=== PATIENT | male | born 1945 | race Caucasian/White ===

== ENCOUNTER → 2018-02-01 14:53 | Outpatient (CLI) | payer OTHER, SELFPAY ==
--- NOTE | 2018-02-04 16:26 | PM.PFT.1 ---
Pulmonary Function Test Referral & Results Date Patient Seen: 02/01/18 Requesting provider: Luke Varela Results: The spirometry demonstrates an FVC of 2.37 L which is 61% of predicted. The FEV1 was measured at 1.32 L which is 46% of predicted. The FEV1/FVC ratio was 56 which is 76% of predicted. Following the administration of bronchodilator there was no appreciable change. Lung volumes show an SVC of 2.70 L which is 65% of predicted. The diffusing capacity was measured at 16.25 which is 57% of predicted. No hemoglobin value was provided, so no correction for potential anemia could be made, if appropriate. The maximum voluntary ventilation was reduced. Interpretation: This study demonstrates moderately severe obstructive lung disease without evidence of benefit following bronchodilator In addition there is moderately severe restrictive lung disease The diffusing capacity is also significant reduce suggesting significant disease at the capillary alveolar level.
== END ==
PROVIDERS: PCP Physician Assistant; Visit Provider Emergency Medicine Emergency Medical Services
DX: J96.91 Respiratory failure, unspecified with hypoxia (principal)
CPT/HCPCS: 94010; 94060; 94726; 94729

== ENCOUNTER → 2018-06-04 14:03 | Outpatient (CLI) | payer OTHER, SELFPAY ==
[2018-06-07 22:17] LABS: Chromium, Plasma 0.8 mcg/L (< 1.3)
== END ==
PROVIDERS: PCP Physician Assistant; Visit Provider Physician Assistant
DX: R78.79 Finding of abnormal level of heavy metals in blood (principal)
CPT/HCPCS: 36415; 82495; 83018

== ENCOUNTER 2018-07-24 13:22 | Outpatient (RCR) | payer OTHER, SELFPAY | END 2018-08-05 10:11 | LOC: PHYS 13:22 | PROVIDERS: PCP Physician Assistant; Visit Provider Physician Assistant | DX: M54.5 Low back pain (principal); G89.4 Chronic pain syndrome | CPT/HCPCS: 97161 ==

== ENCOUNTER 2018-12-20 14:59 | Emergency (ER) | payer OTHER, SELFPAY ==
[2018-12-20 15:03] VITALS: BP 139/82; PULSE 105; RESP 22; TEMP 36.6; O2SAT 91
--- NOTE | 2018-12-20 15:11 | DI.RAD.S_ITS ---
PROCEDURE: XR CHEST 2V INDICATIONS: UPPER RESPIRATORY INFECTION TECHNIQUE: 2 views of the chest were acquired. COMPARISON: [facility], TIMMY, XR CHEST 2V, 02/04/2018, 12:00. [facility], CR, CHEST 1 VIEW, 11/02/2017, 17:52. FINDINGS: Surgical changes and devices: None. Lungs and pleura: Lungs are clear considering reduced inspiratory volume chronically on the left with elevation of left diaphragm. No pleural effusions or pneumothorax. Mediastinum: Mediastinal contours are normal. Heart size is normal. Bones and chest wall: No suspicious bony abnormalities. Soft tissues appear unremarkable. IMPRESSION: Chronically elevated left hemidiaphragm, results in left lower lung mild atelectasis. An area of pneumonia is not found but could be present in the area of atelectasis left lower lobe. Dictated by: Luke Vazquez M.D. on 12/20/2018 at 14:24 Approved by: Luke Vazquez M.D. on 12/20/2018 at 14:35
[2018-12-20 16:11] VITALS: BP 135/81; PULSE 102; RESP 20; O2SAT 87
[2018-12-20 16:12] VITALS: TEMP 36.7
--- NOTE | 2018-12-20 17:22 | ED.URI ---
HPI - URI/Sore Throat General Chief Complaint: Upper Respiratory Symptoms Stated Complaint: coughing up blood for a couple of days Time Seen by Provider: 12/20/18 17:19 Source: patient and family Mode of arrival: ambulatory Limitations: no limitations History of Present Illness HPI Narrative: The patient is a 73-year-old male who presents with hemoptysis and productive cough. He is on Coumadin for history of pulmonary embolism. [facility] and started on what we think is Levaquin. He was also given prescription to start prednisone if he was not getting any better he has not yet started prednisone. He coughed up a quarter-size a blood clot last evening. He said he has coughed up may be for total. He also feels like it is blood tinged sputum. He denies any worsening shortness of breath he is on oxygen continuously due to left hemidiaphragm problem. He has had some body aches and fevers. MD Complaint: cough Related Data Home Medications Medication Instructions Recorded Confirmed mirtazapine 45 mg PO BEDTIME #0 02/22/12 12/20/18 morphine 15 mg PO TID #0 01/13/17 12/20/18 oxycodone 1 tab PO TID PRN #30 tab 04/12/17 12/20/18 metformin [Glucophage] 1,000 mg PO BID #0 04/16/17 12/20/18 amlodipine [Norvasc] 5 mg PO BID #180 11/02/17 12/20/18 carvedilol [Coreg] 25 mg PO BIDCC #0 11/02/17 12/20/18 citalopram 40 mg PO DAILY #90 11/02/17 12/20/18 warfarin [Coumadin] 10 mg PO TUTHSA #180 11/02/17 12/20/18 acetic acid 5 drp OTIC (EAR) TID PRN 12/20/18 albuterol sulfate [ProAir HFA] 1 puff INHALATION DIRECTED PRN 12/20/18 12/20/18 aspirin 81 mg PO DAILY 12/20/18 12/20/18 atorvastatin 40 mg PO DAILY 12/20/18 12/20/18 bupropion HCl 150 mg PO QAM 12/20/18 12/20/18 celecoxib 200 mg PO DAILY 12/20/18 12/20/18 cholecalciferol (vitamin D3) 1,000 unit PO DAILY 12/20/18 12/20/18 [Vitamin D3] fluticasone propion-salmeterol 1 inh INHALATION BID 12/20/18 12/20/18 [Advair Diskus] gabapentin 600 mg PO BID 12/20/18 12/20/18 gabapentin 900 mg PO BEDTIME 12/20/18 12/20/18 hydroxyzine HCl 10 mg PO TID 12/20/18 12/20/18 ipratropium-albuterol [Combivent 1 puff INHALATION QID 12/20/18 12/20/18 Respimat] isosorbide mononitrate 60 mg PO DAILY 12/20/18 12/20/18 lisinopril 20 mg PO BID 12/20/18 12/20/18 lorazepam 1 mg PO BEDTIME 12/20/18 12/20/18 omeprazole 20 mg PO BID 12/20/18 12/20/18 warfarin 7.5 mg PO SUMOWETH 12/20/18 12/20/18 Previous Rx's Medication Instructions Recorded doxycycline hyclate 100 mg PO BID #14 cap 12/20/18 Allergies Allergy/AdvReac Type Severity Reaction Status Date / Time amoxicillin [AMOXICILLIN] Allergy Unknown RASH Verified 12/20/18 17:58 isoniazid [ISONIAZID] Allergy Unknown RASH Verified 12/20/18 17:58 Review of Systems Review of Systems ROS Unobtainable: All systems reviewed & are unremarkable except as noted in HPI and below Constitutional Denies chills, Denies fever(s), Denies lethargy and Denies weakness Eyes Denies change in vision, Denies eye discharge, Denies irritation and Denies loss of vision Cardiovascular Denies chest pain, Denies irregular heart rhythm, Denies lightheadedness, Denies palpitations, Reports dyspnea and Denies orthopnea Respiratory Reports as per HPI, Reports cough, Reports hemoptysis and Reports dyspnea Gastrointestinal Gastrointestinal: Denies abdominal pain, Denies change in bowel habits, Denies diarrhea, Denies nausea and Denies vomiting Genitourinary Denies hematuria, Denies flank pain, Denies urinary incontinence and Denies urinary urgency Musculoskeletal Denies back pain, Denies muscle weakness, Denies numbness and Denies tingling Integumentary/Breasts Denies pruritus, Denies erythema, Denies rash and Denies wounds Neurologic Denies confusion, Denies loss of vision, Denies numbness, Denies tingling and Denies weakness Psychiatric Denies anxiety, Denies confusion, Denies depression, Denies homicidal ideation and Denies suicidal ideation Endocrine Denies palpitations PFSH Medical History Hyperlipidemia (Acute) Hypertension (Acute) Pulmonary embolism (Acute) Social History Smoking Status: Former smoker alcohol intake: never substance use type: does not use Social History Smoking Status: Former smoker alcohol intake: never substance use type: does not use Comment: 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 HEENT: Head atraumatic,EOMI, pupils reactive, CARDIOVASCULAR: Regular rate and rhythm without murmurs, rubs or gallops. RESPIRATORY: Breath sounds equal bilaterally, no wheezes rales or rhonchi. Slightly decreased no respiratory distress speaks in full sentences ABDOMEN: Soft, nontender. Normoactive bowel sounds all 4 quadrants. No guarding or rebound. [RECTAL:] [Hemoccult-positive, no hemorrhoids, nontender] : No CVA tenderness EXTREMITIES: Normal range of motion, no clubbing or edema. Neurovascularly intact NEUROLOGICAL: Alert and oriented x4.Normal gait and speech. Cranial nerves II through XII grossly intact. [Good [id number], good [id number], strength equal bilaterally, no dysarthria or aphasia, sensation in tact to soft touch bilaterally, no visual changes, no facial droop] SKIN: Warm, dry, no laceration, no petechiae, no rashes or lesions. Course Orders Ordered: Discontinued Medications Doxycycline Hyclate (Vibramycin) 100 mg PO NOW ONE Stop: 12/20/18 19:28 Last Admin: 12/20/18 19:37 Dose: 100 mg Sodium Chloride (Normal Saline 0.9%) 1,000 mls @ 150 mls/hr IV CONT AUBREY Last Infusion: 12/20/18 19:48 Dose: 0 mls/hr Admin: 12/20/18 18:12 Dose: 150 mls/hr Vital Signs - 8 hr 12/20/18 15:03 12/20/18 16:11 12/20/18 16:12 Temperature 97.8 F 98.0 F Pulse Rate 105 H 102 H Respiratory Rate 22 20 Blood Pressure 139/82 Blood Pressure [Right Arm] 135/81 Pulse Oximetry 91 87 L MDM - URI/Sore Throat Lab Data Attestation: I reviewed the patient's lab results. Result diagrams: 12/20/18 17:50 12/20/18 17:50 Lab Results 12/20/18 12/20/18 12/20/18 Range/Units 17:50 17:50 17:50 WBC 9.7 (4.5-11.0) X10^3/uL RBC 4.40 L (4.5-5.9) X10^6/uL Hgb 12.4 L (13.5-17.5) g/dL Hct 38.0 L (41-53) % MCV 86.3 (80-100) fL MCH 28.2 (26-34) PG MCHC 32.7 (30-36) % RDW 14.0 (11.6-14.8) % Plt Count 258 (150-400) X10^3/uL Neut % (Auto) 67.2 (50-75) % Lymph % (Auto) 17.6 L (25-40) % [place] % (Auto) 10.3 (3-14) % Eos % (Auto) 4.3 H (2-4) % Baso % (Auto) 0.6 (0-2) % Neut # (Auto) 6500 (1781-5642) /uL Lymph # (Auto) 1700 (4004-8690) /uL [place] # (Auto) 1000 H (0-900) /uL Eos # (Auto) 400 (0-450) /uL Baso # (Auto) 100 (0-100) /uL PT 31.0 H (10.1-12.7) SECONDS INR 2.6 H (0.9-1.3) APTT 41 H (26.4-36.2) SECONDS Sodium (137-145) mmol/L Potassium (3.4-5.1) mmol/L Chloride (98-107) mmol/L Carbon Dioxide (22-32) mmol/L BUN (9-20) mg/dL Creatinine (0.66-1.25) mg/dL Estimated GFR (>60) mL/min BUN/Creatinine Ratio (6-22) Glucose (80-110) mg/dL Lactate (0.7-2.1) mmol/L Calcium (8.4-10.2) mg/dL Magnesium 1.8 (1.6-2.3) mg/dL Total Bilirubin (0.2-1.3) mg/dL AST (17-59) IU/L ALT (21-72) IU/L Alkaline Phosphatase (38-126) U/L Total Creatine Kinase 136 (55-170) U/L CK-MB (CK-2) 1.13 (<2.37) ng/mL CK-MB (CK-2) Rel Index 0.8 L (1.5-5.0) % Troponin I < 0.012 (0.01-0.034) ng/mL B-Natriuretic Peptide < 100 (<100) Total Protein (6.3-8.2) g/dL Albumin (3.5-5.0) g/dL Globulin (1.7-4.1) g/dL Albumin/Globulin Ratio (1.0-2.8) Procalcitonin (<0.5) ng/mL 12/20/18 12/20/18 12/20/18 Range/Units 17:50 17:50 17:50 WBC (4.5-11.0) X10^3/uL RBC (4.5-5.9) X10^6/uL Hgb (13.5-17.5) g/dL Hct (41-53) % MCV (80-100) fL MCH (26-34) PG MCHC (30-36) % RDW (11.6-14.8) % Plt Count (150-400) X10^3/uL Neut % (Auto) (50-75) % Lymph % (Auto) (25-40) % [place] % (Auto) (3-14) % Eos % (Auto) (2-4) % Baso % (Auto) (0-2) % Neut # (Auto) (1292-8348) /uL Lymph # (Auto) (0367-3586) /uL [place] # (Auto) (0-900) /uL Eos # (Auto) (0-450) /uL Baso # (Auto) (0-100) /uL PT (10.1-12.7) SECONDS INR (0.9-1.3) APTT (26.4-36.2) SECONDS Sodium 135 L (137-145) mmol/L Potassium 4.3 (3.4-5.1) mmol/L Chloride 100 (98-107) mmol/L Carbon Dioxide 25 (22-32) mmol/L BUN 16 (9-20) mg/dL Creatinine 0.90 (0.66-1.25) mg/dL Estimated GFR > 60.0 (>60) mL/min BUN/Creatinine Ratio 17.8 (6-22) Glucose 151 H (80-110) mg/dL Lactate 1.5 (0.7-2.1) mmol/L Calcium 9.0 (8.4-10.2) mg/dL Magnesium (1.6-2.3) mg/dL Total Bilirubin 0.5 (0.2-1.3) mg/dL AST 24 (17-59) IU/L ALT 27 (21-72) IU/L Alkaline Phosphatase 56 (38-126) U/L Total Creatine Kinase (55-170) U/L CK-MB (CK-2) (<2.37) ng/mL CK-MB (CK-2) Rel Index (1.5-5.0) % Troponin I (0.01-0.034) ng/mL B-Natriuretic Peptide (<100) Total Protein 7.3 (6.3-8.2) g/dL Albumin 4.1 (3.5-5.0) g/dL Globulin 3.2 (1.7-4.1) g/dL Albumin/Globulin Ratio 1.3 (1.0-2.8) Procalcitonin < 0.05 (<0.5) ng/mL Imaging Data Chest x-ray: Radiologist's impression: PROCEDURE: XR CHEST 2V INDICATIONS: UPPER RESPIRATORY INFECTION TECHNIQUE: 2 views of the chest were acquired. [facility], CR, CHEST 1 VIEW, 11/02/2017, 17:52. FINDINGS: Surgical changes and devices: None. Lungs and pleura: Lungs are clear considering reduced inspiratory volume chronically on the left with elevation of left diaphragm. No pleural effusions or pneumothorax. Mediastinum: Mediastinal contours are normal. Heart size is normal. Bones and chest wall: No suspicious bony abnormalities. Soft tissues appear unremarkable. IMPRESSION: Chronically elevated left hemidiaphragm, results in left lower lung mild atelectasis. An area of pneumonia is not found but could be present in the area of atelectasis left lower lobe. Dictated by: Luke Vazquez M.D. on 12/20/2018 at 14:24 ECG Data Attestation: I personally reviewed and interpreted this ECG as follows: Prior ECG tracings: available for review Interpretation: Normal sinus rhythm rate [address] changes no T-wave inversions similar to previous EKG MDM Narrative Medical decision making narrative: Is on the patient is actually taking azithromycin. Hemoptysis is small amounts of likely due from probable pneumonia, bronchitis and Coumadin. He states he is overall not feeling better would like to change him to doxycycline. It is possible that patient has influenza although he is afebrile and overall looks okay. He is certainly out of the window to benefit from Tamiflu, at this time no indication to even test. He appears nontoxic. At this time patient may be discharged home. I discussed all findings with the patient and spouse, Education has been performed regarding treatment plan, diagnosis, warning signs and symptoms and all concerns have been addressed. Verbally agree with and understood all of the above. Discharge Plan Departure Patient Disposition: Home Clinical Impression: Pneumonia Qualifiers: Pneumonia type: due to unspecified organism Laterality: unspecified laterality Lung location: unspecified part of lung Qualified Code(s): J18.9 - Pneumonia, unspecified organism Discharge Date/Time: 12/20/18 19:48 Interventions: ED Discharge Assessment Last Done: 12/20/18 19:48 Instructions: Atypical Pneumonia Activity Restrictions/Additional Instructions: *You have been diagnosed with atypical pneumonia *What to do: Any antibiotic can change the INR/Coumadin level. You must get this rechecked in the next 3 days. Today her level is 2.7. *Continue to take medications as directed Stop taking azithromycin Start taking doxycycline 100 mg twice a day for 7 days Fill and take prednisone as previously prescribed *Follow up with your primary care provider in 2-3 days *Return to ER if you should have increasing shortness of breath, coughing up cup fulls of blood, increasing chest or any new, worsening or concerning symptoms Prescriptions: New doxycycline hyclate 100 mg capsule 100 mg PO BID Qty: 14 RF: 0 No Action mirtazapine 15 MG tablet 45 mg PO BEDTIME Qty: 0 RF: 0 morphine 15 MG tablet 15 mg PO TID Qty: 0 RF: 0 oxycodone 5 MG tablet 1 tab PO TID PRN (Reason: pain) Qty: 30 RF: 0 metformin [Glucophage] 1,000 MG tablet 1,000 mg PO BID Qty: 0 RF: 0 amlodipine [Norvasc] 5 MG tablet 5 mg PO BID Qty: 180 RF: 0 citalopram 40 MG tablet 40 mg PO DAILY Qty: 90 RF: 0 warfarin [Coumadin] 5 MG tablet 10 mg PO TUTHSA Qty: 180 RF: 0 carvedilol [Coreg] 25 MG tablet 25 mg PO BIDCC Qty: 0 RF: 0 fluticasone propion-salmeterol [Advair Diskus] 250-50 mcg/dose Blister With Device 1 inh INHALATION BID RF: 0 acetic acid 2 % Solution 5 drp otic (ear) TID PRN (Reason: ear care) RF: 0 warfarin 5 mg Tablet 7.5 mg PO SUMOWETH RF: 0 aspirin 81 mg Tablet,Chewable 81 mg PO DAILY RF: 0 celecoxib 200 mg Capsule 200 mg PO DAILY RF: 0 atorvastatin 40 mg Tablet 40 mg PO DAILY RF: 0 gabapentin 300 mg Capsule 600 mg PO BID RF: 0 gabapentin 300 mg Capsule 900 mg PO BEDTIME RF: 0 lorazepam 1 mg Tablet 1 mg PO BEDTIME RF: 0 albuterol sulfate [ProAir HFA] 90 mcg/actuation Hfa Aerosol Inhaler 1 puff INHALATION DIRECTED PRN (Reason: Shortness Of Breath) RF: 0 hydroxyzine HCl 10 mg Tablet 10 mg PO TID RF: 0 cholecalciferol (vitamin D3) [Vitamin D3] 1,000 unit Capsule 1,000 unit PO DAILY RF: 0 bupropion HCl 150 mg Tablet Extended Release 24 Hr 150 mg PO QAM RF: 0 omeprazole 20 mg Tablet,Delayed Release (Dr/Ec) 20 mg PO BID RF: 0 Combivent Respimat 20-100 mcg/actuation Mist 1 puff Inhalation QID RF: 0 lisinopril 20 MG tablet 20 mg PO BID RF: 0 isosorbide mononitrate 60 MG tablet extended release 24 hr 60 mg PO DAILY RF: 0 Referrals: Michaela See PA-C [Primary Care Provider] -
[2018-12-20 18:03] LABS: Add Manual Diff / Slide Review NO; Basophils Absolute Auto 100 /uL (0-100); Basophils Percent Auto 0.6 % (0-2); Eosinophils Absolute Auto 400 /uL (0-450); Eosinophils Percent Auto 4.3 % (2-4); Hemoglobin 12.4 g/dL (13.5-17.5); Lymphocytes Absolute Auto 1700 /uL (1100-4500); Lymphocytes Percent Auto 17.6 % (25-40); Mean Corpuscular HGB Conc 32.7 % (30-36); Mean Corpuscular Hemoglobin 28.2 PG (26-34); Mean Corpuscular Volume 86.3 fL (80-100); Monocytes Absolute Auto 1000 /uL (0-900); Monocytes Percent Auto 10.3 % (3-14); Neutrophils Absolute Auto 6500 /uL (1500-7000); Neutrophils Percent Auto 67.2 % (50-75); Platelet Count 258 X10^3/uL (150-400); White Blood Cell Count 9.7 X10^3/uL (4.5-11.0)
[2018-12-20] MEDS: SODIUM CHLORIDE 0.9% 1,000 ML 150 ML IV (18:12)
[2018-12-20 18:15] LABS: INR 2.6 (0.9-1.3)
[2018-12-20 18:17] LABS: Creatine Kinase 136 U/L (55-170); Magnesium 1.8 mg/dL (1.6-2.3); PTT Partial Thromboplastin Tim 41 SECONDS (26.4-36.2)
[2018-12-20 18:19] LABS: Alanine Aminotransferase 27 IU/L (21-72); Albumin 4.1 g/dL (3.5-5.0); Albumin Globulin Ratio 1.3 (1.0-2.8); Alkaline Phosphatase 56 U/L (38-126); Aspartate Aminotransferase 24 IU/L (17-59); BUN Creatinine Ratio 17.8 (6-22); Bilirubin Total 0.5 mg/dL (0.2-1.3); Blood Urea Nitrogen 16 mg/dL (9-20); Carbon Dioxide 25 mmol/L (22-32); Chloride 100 mmol/L (98-107); Estimated Glomerular Filt Rate > 60.0 mL/min (>60); Globulin 3.2 g/dL (1.7-4.1); Glucose 151 mg/dL (80-110); HEMOLYSIS < 15 (0-50); Lactate (Lactic Acid) 1.5 mmol/L (0.7-2.1); Potassium 4.3 mmol/L (3.4-5.1); Sodium 135 mmol/L (137-145); Total Protein 7.3 g/dL (6.3-8.2)
[2018-12-20 18:26] LABS: B Type Natriuretic Peptide < 100 (<100)
[2018-12-20 18:30] LABS: Troponin I < 0.012 ng/mL (0.01-0.034)
[2018-12-20 18:32] LABS: CKMB % Relative Index 0.8 % (1.5-5.0); Creatine Kinase MB 1.13 ng/mL (<2.37)
[2018-12-20 18:34] LABS: Procalcitonin < 0.05 ng/mL (<0.5)
[2018-12-20 19:37] VITALS: BP 145/74; PULSE 88; RESP 18; O2SAT 95
[2018-12-20] MEDS: DOXYCYCLINE HYCLATE 100 MG TABLET PO (19:37)
== END 2018-12-20 19:48 | disposition home or self-care (01) ==
PROVIDERS: Emergency Provider Emergency Medicine; PCP Physician Assistant
DX: J18.9 Pneumonia, unspecified organism (principal)
CPT/HCPCS: 71046; 80053; 82550; 82553; 83605; 83735; 83880; 84145; 84484; 85025; 85610; 85730; 87040; 93005; 96360; 96361; 99283; 99285

== ENCOUNTER → 2019-01-15 15:12 | Outpatient (CLI) | payer OTHER, SELFPAY ==
[2019-01-15 16:05] LABS: Add Manual Diff / Slide Review NO; Basophils Absolute Auto 100 /uL (0-100); Basophils Percent Auto 0.6 % (0-2); Eosinophils Absolute Auto 300 /uL (0-450); Eosinophils Percent Auto 3.5 % (2-4); Hematocrit 40.4 % (41-53); Hemoglobin 13.2 g/dL (13.5-17.5); Lymphocytes Absolute Auto 1500 /uL (1100-4500); Lymphocytes Percent Auto 17.6 % (25-40); Mean Corpuscular HGB Conc 32.8 % (30-36); Mean Corpuscular Hemoglobin 28.5 PG (26-34); Mean Corpuscular Volume 87.1 fL (80-100); Monocytes Absolute Auto 700 /uL (0-900); Monocytes Percent Auto 8.1 % (3-14); Neutrophils Absolute Auto 6200 /uL (1500-7000); Neutrophils Percent Auto 70.2 % (50-75); Platelet Count 244 X10^3/uL (150-400); Red Blood Cell Count 4.64 X10^6/uL (4.5-5.9); Red Cell Distribution Width 14.7 % (11.6-14.8); White Blood Cell Count 8.8 X10^3/uL (4.5-11.0)
[2019-01-15 16:27] LABS: Hemoglobin A1C% w Est Avg Glu 7.3 % (4.0-6.0)
[2019-01-15 17:04] LABS: Alanine Aminotransferase 23 IU/L (21-72); Albumin 4.1 g/dL (3.5-5.0); Albumin Globulin Ratio 1.4 (1.0-2.8); Alkaline Phosphatase 53 U/L (38-126); Aspartate Aminotransferase 21 IU/L (17-59); BUN Creatinine Ratio 17.8 (6-22); Bilirubin Total 0.5 mg/dL (0.2-1.3); Blood Urea Nitrogen 16 mg/dL (9-20); Calcium 9.2 mg/dL (8.4-10.2); Carbon Dioxide 23 mmol/L (22-32); Chloride 103 mmol/L (98-107); Cholesterol 157 mg/dL (140-199); Estimated Glomerular Filt Rate > 60.0 mL/min (>60); Globulin 2.9 g/dL (1.7-4.1); Glucose 214 mg/dL (80-110); HDL Cholesterol 46 mg/dL (40-60); HEMOLYSIS < 15 (0-50); LDL Cholesterol Calculated 63 mg/dL (<100); Potassium 4.6 mmol/L (3.4-5.1); Sodium 137 mmol/L (137-145); Triglycerides 238 mg/dL (35-150)
== END ==
PROVIDERS: PCP Physician Assistant; Visit Provider Physician Assistant
DX: E11.9 Type 2 diabetes mellitus without complications (principal); E78.5 Hyperlipidemia, unspecified; I10 Essential (primary) hypertension
CPT/HCPCS: 36415; 80053; 80061; 83036; 85025

== ENCOUNTER → 2019-05-19 13:22 | Outpatient (CLI) | payer OTHER, SELFPAY ==
--- NOTE | 2019-05-19 | DI.MRI.S_ITS ---
PROCEDURE: MR LUMBAR SPINE WO CON INDICATIONS: Low back pain TECHNIQUE: Noncontrast sagittal T1 spin echo and T2 fast echo, sagittal STIR, axial T1 and T2 fast spin echo through the lumbar spine. In cases with scoliosis, additional coronal T2 fast spin echo may be performed. COMPARISON: [facility], MR, L-SPINE WITHOUT CONTRAST, 06/19/2014, 14:28. FINDINGS: Image quality: Motion artifact. Alignment and Curvature: There is normal bony alignment. Bone Marrow: No acute fracture. Multilevel degenerative endplate sclerosis and spurring. Diffuse facet arthropathy. Spinal Cord: Conus medullaris terminates at the L1 level. Visualized cord demonstrates normal signal and size. Paraspinous Soft Tissues: Atrophy of the right psoas muscle. L1-L2: Normal appearance. L2-L3: No central canal stenosis. Partial effacement of both lateral recesses with bilaterally symmetric appearance. Moderate right foraminal stenosis with nerve root compression. No left foraminal narrowing. No interval change L3-L4: Normal appearance. No central canal narrowing. Partial effacement of both lateral recesses with bilaterally symmetric appearance. Mild bilateral foraminal stenosis. No change L4-L5: Mild dorsal epidural lipomatosis. Mild central canal narrowing. Partial effacement of both lateral recesses with bilaterally symmetric appearance. Severe left foraminal stenosis with nerve root compression. Mild right foraminal narrowing no interval change L5-S1: No central canal stenosis or lateral recess appear grossly patent. Mild to moderate right foraminal narrowing with minimal nerve root compression. No left foraminal stenosis. No interval change IMPRESSION: Overall, unchanged lumbar spondylosis with severe left foraminal narrowing at L4-L5. Moderate right L2-L3 foraminal narrowing also unchanged. Mild to moderate right L5-S1 foraminal narrowing, unchanged. Dictated by: Adalberto Hemphill M.D. on 05/19/2019 at 14:26 Approved by: Adalberto Hemphill M.D. on 05/19/2019 at 14:34
== END ==
PROVIDERS: PCP Physician Assistant; Visit Provider Physical Medicine & Rehabilitation Pain Medicine
DX: M54.5 Low back pain (principal); M47.816 Spondylosis without myelopathy or radiculopathy, lumbar region; M48.061 Spinal stenosis, lumbar region without neurogenic claudication; M48.07 Spinal stenosis, lumbosacral region
CPT/HCPCS: 72148

== ENCOUNTER → 2019-11-28 18:59 | Outpatient (ROUT) | payer OTHER, SELFPAY ==
[2019-11-28 19:16] LABS: Hematocrit 37.8 % (41-53); Hemoglobin 12.6 g/dL (13.5-17.5); Mean Corpuscular HGB Conc 33.4 % (30-36); Mean Corpuscular Hemoglobin 27.6 PG (26-34); Mean Corpuscular Volume 82.8 fL (80-100); Platelet Count 239 X10^3/uL (150-400); Red Blood Cell Count 4.57 X10^6/uL (4.5-5.9); Red Cell Distribution Width 14.8 % (11.6-14.8); White Blood Cell Count 8.9 X10^3/uL (4.5-11.0)
[2019-11-28 19:22] LABS: Alanine Aminotransferase 28 IU/L (<50); Albumin 4.4 g/dL (3.5-5.0); Albumin Globulin Ratio 1.3 (1.0-2.8); Alkaline Phosphatase 59 U/L (38-126); Aspartate Aminotransferase 34 IU/L (17-59); BUN Creatinine Ratio 22.2 (6-22); Bilirubin Total 0.5 mg/dL (0.2-1.3); Blood Urea Nitrogen 20 mg/dL (9-20); Calcium 9.7 mg/dL (8.4-10.2); Carbon Dioxide 26 mmol/L (22-32); Chloride 103 mmol/L (98-107); Cholesterol 124 mg/dL (140-199); Estimated Glomerular Filt Rate > 60.0 mL/min (>60); Globulin 3.3 g/dL (1.7-4.1); Glucose 173 mg/dL (80-110); HDL Cholesterol 38 mg/dL (40-60); HEMOLYSIS 19 (0-50); Hemoglobin A1C% w Est Avg Glu 6.7 % (4.0-6.0); LDL Cholesterol Calculated 20 mg/dL (<100); Potassium 4.8 mmol/L (3.4-5.1); Sodium 140 mmol/L (137-145); Total Protein 7.7 g/dL (6.3-8.2); Triglycerides 332 mg/dL (35-150)
[2019-11-28 19:26] LABS: Add Manual Diff / Slide Review YES
[2019-11-28 21:23] LABS: Neutrophils Absolute Manual 6230 /uL (3000-5900); Total Cells Counted 100
[2019-11-28 21:24] LABS: RBC Morphology Normal Morphology
== END ==
PROVIDERS: PCP Physician Assistant; Visit Provider Physician Assistant
DX: E11.9 Type 2 diabetes mellitus without complications (principal); E78.2 Mixed hyperlipidemia
CPT/HCPCS: 80053; 80061; 83036; 85025

== ENCOUNTER 2020-07-12 17:05 | Emergency (ER) | payer OTHER, SELFPAY ==
[2020-07-12] VITALS (14 sets, daily range): BP systolic 151–215; BP diastolic 74–94; PULSE 68–77; RESP 16–24; TEMP 36.3; O2SAT 95–99; BMI 38.7
--- NOTE | 2020-07-12 17:19 | DI.RAD.S_ITS ---
PROCEDURE: XR CHEST 1V INDICATIONS: chest pain TECHNIQUE: One view of the chest was acquired. COMPARISON: [facility], CR, XR CHEST 2V, 02/04/2018, 12:00. [facility], CR, CHEST 1 VIEW, 11/02/2017, 17:52. [facility], CR, XR CHEST 2V, 12/20/2018, 15:13. FINDINGS: Surgical changes and devices: None. Lungs and pleura: Lungs are clear. No pleural effusions or pneumothorax. There is elevation of the left hemidiaphragm. Mediastinum: The cardiac contours are likely mildly enlarged. The aorta demonstrates calcification and tortuosity. Bones and chest wall: No suspicious bony lesions. Age-appropriate bony degenerative changes are seen. Overlying soft tissues appear unremarkable. IMPRESSION: Chronic elevation of the left hemidiaphragm. No definite, acute abnormality is seen. Likely mild cardiomegaly. Dictated by: Domingo Negron M.D. on 07/12/2020 at 16:55 Approved by: Domingo Negron M.D. on 07/12/2020 at 16:56
--- NOTE | 2020-07-12 17:27 | ED_ITS ---
HPI - Chest Pain <Sade WanJACKLYN - Last Filed: 07/12/20 21:33> General Chief Complaint: Chest Pain Stated Complaint: Chest Pain and Pressure, High BP Time Seen by Provider: 07/12/20 17:14 Source: patient Mode of arrival: Wheelchair History of Present Illness HPI narrative: 75yo male hypertension, lung lobectomy, currently is constantly on 4 L nasal cannula-unsure but thinks he may have COPD, presents to the emergency department for intermittent left-sided chest pain. He states the pain is intermittent ?squirt of sharp pain that lasts a few seconds, he reports it has been on off for the past 3 days. Patient states the last felt the pain today around 1:00 p.m. He states they occur without cause during activity and during rest. He denies any aggravating or alleviating symptoms. Patient reports diarrhea x1 week as well. Patient has noticed increased BP readings at home. He denies any other symptoms such as shortness of breath, cough, fevers, abdominal pain, nausea, vomiting, increased swelling in his legs, or any other concerns. He states he takes multiple ?hearrts pills ?. Related Data Home Medications Medication Instructions Recorded Confirmed mirtazapine 45 mg PO BEDTIME #0 02/22/12 04/02/19 morphine 15 mg PO TID #0 01/13/17 04/02/19 oxycodone 1 tab PO TID PRN #30 tab 04/12/17 04/02/19 metformin [Glucophage] 1,000 mg PO BID #0 04/16/17 04/02/19 amlodipine [Norvasc] 5 mg PO BID #180 11/02/17 04/02/19 carvedilol [Coreg] 25 mg PO BIDCC #0 11/02/17 04/02/19 citalopram 40 mg PO DAILY #90 11/02/17 04/02/19 warfarin [Coumadin] 10 mg PO TUTHSA #180 11/02/17 04/02/19 acetic acid 5 drp OTIC (EAR) TID PRN 12/20/18 04/02/19 albuterol sulfate [ProAir HFA] 1 puff INHALATION DIRECTED PRN 12/20/18 04/02/19 aspirin 81 mg PO DAILY 12/20/18 04/02/19 atorvastatin 40 mg PO DAILY 12/20/18 04/02/19 bupropion HCl 150 mg PO QAM 12/20/18 04/02/19 celecoxib 200 mg PO DAILY 12/20/18 04/02/19 cholecalciferol (vitamin D3) 1,000 unit PO DAILY 12/20/18 04/02/19 [Vitamin D3] fluticasone propion-salmeterol 1 inh INHALATION BID 12/20/18 04/02/19 [Advair Diskus] gabapentin 600 mg PO BID 12/20/18 04/02/19 gabapentin 900 mg PO BEDTIME 12/20/18 04/02/19 hydroxyzine HCl 10 mg PO TID 12/20/18 04/02/19 ipratropium-albuterol [Combivent 1 puff INHALATION QID 12/20/18 04/02/19 Respimat] isosorbide mononitrate 60 mg PO DAILY 12/20/18 04/02/19 lisinopril 20 mg PO BID 12/20/18 04/02/19 lorazepam 1 mg PO BEDTIME 12/20/18 04/02/19 omeprazole 20 mg PO BID 12/20/18 04/02/19 warfarin 7.5 mg PO SUMOWETH 12/20/18 04/02/19 Resmed Aircurve 10 BIPAP #1 ea 04/02/19 04/02/19 Previous Rx's Medication Instructions Recorded doxycycline hyclate 100 mg PO BID #14 cap 12/20/18 Allergies Allergy/AdvReac Type Severity Reaction Status Date / Time amoxicillin [AMOXICILLIN] Allergy Unknown RASH Verified 07/12/20 17:23 isoniazid [ISONIAZID] Allergy Unknown RASH Verified 07/12/20 17:23 Review of Systems <JACKLYN Akers - Last Filed: 07/12/20 21:33> Review of Systems Narrative: REVIEW OF SYSTEMS: GENERAL: Denies fever or chills. HENT: No head trauma, hearing loss or sore throat. EYES: No loss of vision, double vision, eye pain, or irritation. CARDIOVASCULAR: Reports chest pain, see HPI. RESPIRATORY: No shortness of breath or cough. GASTROINTESTINAL: No nausea, vomiting, diarrhea, or constipation. GENITOURINARY: No flank pain or dysuria. MUSCULOSKELETAL: No pain, weakness, or deformities. INTEGUMENTARY: No rash, lesions, or pruritus. NEURO: No numbness, tingling, memory loss, or confusion. PSYCH: No behavior or mood changes. Patient History <JACKLYN Akers - Last Filed: 07/12/20 21:33> Medical History Hyperlipidemia (Acute) Hypertension (Acute) Pulmonary embolism (Acute) Social History Smoking Status: Former smoker alcohol intake: never substance use type: does not use Smoking Status: Former smoker alcohol intake frequency: 0-2 drinks per day Substance Use Type: does not use Exam <JACKLYN Akers - Last Filed: 07/12/20 21:33> Initial Vital Signs Initial Vital Signs: Vital Signs Temperature 97.3 F L 07/12/20 17:20 Pulse Rate 77 07/12/20 17:20 Respiratory Rate 16 07/12/20 17:20 Blood Pressure 215/94 H 07/12/20 17:20 Pulse Oximetry 96 07/12/20 17:20 PHYSICAL EXAMINATION: GENERAL: Alert and awake, obese appearing gentleman. HENT: Normocephalic, atraumatic. Ear canals patent. Oral mucosa is pink and moist. EYES: Conjunctiva pink, sclera white, no periorbital swelling. CHEST: Normal to inspection and without deformities. CARDIOVASCULAR: S1 and S2 sounds normal. Regular rate and rhythm, no murmurs, clicks, or bruits. RESPIRATORY: Normal respiratory rate, trachea midline, airway patent. No stridor, nasal flaring or accessory muscle use. Lungs clear, decreased lung sounds on left side, most likely consistent with lobectomy. Chronically on 4 L nasal cannula. GASTROINTESTINAL: Bowel sounds normoactive. Abdomen is soft and non-tender. No organomegaly. MUSCULOSKELETAL: Normal gait and coordination. Equal tone and mass bilaterally. EXTREMITIES: CMS intact. Moves all extremities. SKIN: Warm, dry, soft, appropriate color for ethnicity. No lesions, rashes, or wounds. NEURO: Alert and Oriented X 3. Good coordination. No ataxia, or sensory deficits, or cognitive issues. PSYCH: Appropriate affect and mood. <Pete Jarquin DO - Last Filed: 07/12/20 22:35> Initial Vital Signs Initial Vital Signs: Vital Signs Temperature 97.3 F L 07/12/20 17:20 Pulse Rate 77 07/12/20 17:20 Respiratory Rate 16 07/12/20 17:20 Blood Pressure 215/94 H 07/12/20 17:20 Pulse Oximetry 96 07/12/20 17:20 Scores <JACKLYN Akers - Last Filed: 07/12/20 21:33> HEART Score Heart Score history: Slightly Suspicious Heart Score EKG: Normal Heart Score Age: > or = 65 years old Heart Score risk factors: > 3 risk factors or hx of atherosclerotic disease Heart Score troponin: < or = to normal limit Heart Score Total: 4 Course <JACKLYN Akers - Last Filed: 07/12/20 21:33> Course Course Narrative: 1834: Discussed patient's heart score and test, test results, and symptoms with Dr. Sorto, she recommended repeat troponin and EKG as well as CT, discharge if negative. Patient continues to deny chest pain throughout the emergency department stay. Orders Ordered: ED Orders 07/12/20 17:16 Complete Blood Count AUTO DIFF Stat Comprehensive Metabolic Panel Stat Lipase Stat NT-proBNP (BNP-Adult 18+) Stat Partial Thromboplastin Time Stat Prothrombin Time INR Stat Troponin & CK Cardiac Panel Stat 07/12/20 17:19 XR chest 1V Stat 07/12/20 18:49 CT angio chest PE protocol Stat 07/12/20 19:15 Troponin I Stat EKG-12 Lead Stat Consultations Consultation #1: Discussed test, test results, and plan of care with Dr. Jarquin. Vital Signs Vital signs: Vital Signs - 8 hr 07/12/20 17:20 07/12/20 17:21 07/12/20 17:30 Temperature 97.3 F L Pulse Rate 77 72 72 Respiratory Rate 16 16 16 Blood Pressure 215/94 H Pulse Oximetry 96 99 99 07/12/20 17:31 07/12/20 18:00 07/12/20 18:24 Temperature Pulse Rate 72 71 72 Respiratory Rate 19 17 18 Blood Pressure 191/86 H 178/83 H 170/81 H Pulse Oximetry 97 98 97 07/12/20 18:30 07/12/20 19:05 07/12/20 19:07 Temperature Pulse Rate 75 75 72 Respiratory Rate 17 18 Blood Pressure 175/82 H 210/86 H Pulse Oximetry 99 97 07/12/20 19:27 07/12/20 19:30 07/12/20 20:00 Temperature Pulse Rate 74 72 70 Respiratory Rate 21 24 18 Blood Pressure 185/84 H 177/85 H 151/74 H Pulse Oximetry 95 95 98 07/12/20 20:30 07/12/20 20:31 Temperature Pulse Rate 69 68 Respiratory Rate 16 16 Blood Pressure 178/80 H Pulse Oximetry 96 97 <Pete Jarquni DO - Last Filed: 07/12/20 22:35> Orders Ordered: ED Orders 07/12/20 17:16 Complete Blood Count AUTO DIFF Stat Comprehensive Metabolic Panel Stat Lipase Stat NT-proBNP (BNP-Adult 18+) Stat Partial Thromboplastin Time Stat Prothrombin Time INR Stat Troponin & CK Cardiac Panel Stat 07/12/20 17:19 XR chest 1V Stat 07/12/20 18:49 CT angio chest PE protocol Stat 07/12/20 19:15 Troponin I Stat EKG-12 Lead Stat Vital Signs Vital signs: Vital Signs - 8 hr 07/12/20 17:20 07/12/20 17:21 07/12/20 17:30 Temperature 97.3 F L Pulse Rate 77 72 72 Respiratory Rate 16 16 16 Blood Pressure 215/94 H Pulse Oximetry 96 99 99 07/12/20 17:31 07/12/20 18:00 07/12/20 18:24 Temperature Pulse Rate 72 71 72 Respiratory Rate 19 17 18 Blood Pressure 191/86 H 178/83 H 170/81 H Pulse Oximetry 97 98 97 07/12/20 18:30 07/12/20 19:05 07/12/20 19:07 Temperature Pulse Rate 75 75 72 Respiratory Rate 17 18 Blood Pressure 175/82 H 210/86 H Pulse Oximetry 99 97 07/12/20 19:27 07/12/20 19:30 07/12/20 20:00 Temperature Pulse Rate 74 72 70 Respiratory Rate 21 24 18 Blood Pressure 185/84 H 177/85 H 151/74 H Pulse Oximetry 95 95 98 07/12/20 20:30 07/12/20 20:31 Temperature Pulse Rate 69 68 Respiratory Rate 16 16 Blood Pressure 178/80 H Pulse Oximetry 96 97 MDM - Chest Pain <JACKLYN Akers - Last Filed: 07/12/20 21:33> Medical Records Data Attestation: I reviewed the patient's medical records. Lab Data Attestation: I reviewed the patient's lab results. Result diagrams: 07/12/20 17:16 07/12/20 17:16 Labs: Lab Results 07/12/20 07/12/20 07/12/20 Range/Units 17:16 17:16 17:16 WBC 7.6 (4.5-11.0) X10^3/uL RBC 4.34 L (4.5-5.9) X10^6/uL Hgb 11.8 L (13.5-17.5) g/dL Hct 35.8 L (41-53) % MCV 82.4 (80-100) fL MCH 27.2 (26-34) PG MCHC 33.0 (30-36) % RDW 15.5 H (11.6-14.8) % Plt Count 222 (150-400) X10^3/uL Neut % (Auto) 65.1 (50-75) % Lymph % (Auto) 19.9 L (25-40) % Douglas % (Auto) 9.8 (3-14) % Eos % (Auto) 4.6 H (2-4) % Baso % (Auto) 0.6 (0-2) % Neut # (Auto) 4900 (2016-3277) /uL Lymph # (Auto) 1500 (0069-4816) /uL Douglas # (Auto) 700 (0-900) /uL Eos # (Auto) 300 (0-450) /uL Baso # (Auto) 0 (0-100) /uL PT 16.8 H (10.1-12.7) SECONDS INR 1.5 H (0.9-1.3) APTT 35 D (26.4-36.2) SECONDS Sodium 139 (137-145) mmol/L Potassium 4.0 (3.4-5.1) mmol/L Chloride 101 (98-107) mmol/L Carbon Dioxide 32 (22-32) mmol/L BUN 15 (9-20) mg/dL Creatinine 0.89 (0.66-1.25) mg/dL Estimated GFR > 60.0 (>60) mL/min BUN/Creatinine Ratio 16.9 (6-22) Glucose 130 H (80-110) mg/dL Calcium 9.1 (8.4-10.2) mg/dL Total Bilirubin 0.6 (0.2-1.3) mg/dL AST 28 (17-59) IU/L ALT 20 (<50) IU/L Alkaline Phosphatase 50 (38-126) U/L Total Creatine Kinase 85 (55-170) U/L CK-MB (CK-2) TNP CK-MB (CK-2) Rel Index TNP Troponin I < 0.012 (0.01-0.034) ng/mL NT-Pro-B Natriuret Pep (<125) pg/mL Total Protein 7.5 (6.3-8.2) g/dL Albumin 4.2 (3.5-5.0) g/dL Globulin 3.3 (1.7-4.1) g/dL Albumin/Globulin Ratio 1.3 (1.0-2.8) Lipase 28 (23-300) U/L 07/12/20 07/12/20 Range/Units 17:16 19:15 WBC (4.5-11.0) X10^3/uL RBC (4.5-5.9) X10^6/uL Hgb (13.5-17.5) g/dL Hct (41-53) % MCV (80-100) fL MCH (26-34) PG MCHC (30-36) % RDW (11.6-14.8) % Plt Count (150-400) X10^3/uL Neut % (Auto) (50-75) % Lymph % (Auto) (25-40) % Douglas % (Auto) (3-14) % Eos % (Auto) (2-4) % Baso % (Auto) (0-2) % Neut # (Auto) (2289-0191) /uL Lymph # (Auto) (8045-3700) /uL Douglas # (Auto) (0-900) /uL Eos # (Auto) (0-450) /uL Baso # (Auto) (0-100) /uL PT (10.1-12.7) SECONDS INR (0.9-1.3) APTT (26.4-36.2) SECONDS Sodium (137-145) mmol/L Potassium (3.4-5.1) mmol/L Chloride (98-107) mmol/L Carbon Dioxide (22-32) mmol/L BUN (9-20) mg/dL Creatinine (0.66-1.25) mg/dL Estimated GFR (>60) mL/min BUN/Creatinine Ratio (6-22) Glucose (80-110) mg/dL Calcium (8.4-10.2) mg/dL Total Bilirubin (0.2-1.3) mg/dL AST (17-59) IU/L ALT (<50) IU/L Alkaline Phosphatase (38-126) U/L Total Creatine Kinase (55-170) U/L CK-MB (CK-2) CK-MB (CK-2) Rel Index Troponin I < 0.012 (0.01-0.034) ng/mL NT-Pro-B Natriuret Pep 150 H (<125) pg/mL Total Protein (6.3-8.2) g/dL Albumin (3.5-5.0) g/dL Globulin (1.7-4.1) g/dL Albumin/Globulin Ratio (1.0-2.8) Lipase (23-300) U/L Urine Dip Bedside Urine Glucose Negative Bedside Urine Bilirubin - Negative Bedside Urine Ketone - Negative Urine Specific [place] 1.010 Bedside Urine Occult Blood - Negative Bedside Urine pH 8.0 Bedside Urine Protein - Negative Bedside Urine Urobilinogen - Negative Bedside Urine Nitrite - Negative Bedside Urine Leukocytes - Negative Esterase Imaging Data Chest x-ray: Radiologist's Impression: [address] [address] XRay Report Signed Patient: Randy Dior [facility]#: [id number] : 6Acct:[id number] Age/Sex: 75 / MDate of Service: 07/12/20 Loc: ED Accession Number: [id number] Procedure: XR chest 1V Ordering Provider: Sade Wan PROCEDURE: XR CHEST 1V INDICATIONS: chest pain TECHNIQUE: One view of the chest was acquired. COMPARISON: [facility], CR, XR CHEST 2V, 02/04/2018, 12:00. [facility], , CHEST 1 VIEW, 11/02/2017, 17:52. [facility], , XR CHEST 2V, 12/20/2018, 15:13. FINDINGS: Surgical changes and devices: None. Lungs and pleura: Lungs are clear. No pleural effusions or pneumothorax. There is elevation of the left hemidiaphragm. Mediastinum: The cardiac contours are likely mildly enlarged. The aorta demonstrates calcification and tortuosity. Bones and chest wall: No suspicious bony lesions. Age-appropriate bony degenerative changes are seen. Overlying soft tissues appear unremarkable. IMPRESSION: Chronic elevation of the left hemidiaphragm. No definite, acute abnormality is seen. Likely mild cardiomegaly. Dictated by: Domingo Negron M.D. on 07/12/2020 at 16:55 Approved by: Domingo Negron M.D. on 07/12/2020 at 16:56 CHEST CTA: Radiologist's Impression: [place] [address] CT Scan Report Signed Patient: Randy Dior R#: [id number] : 6Acct:[id number] Age/Sex: 75 / MDate of Service: 07/12/20 Loc: ED Accession Number: [id number] Procedure: CT angio chest PE protocol Ordering Provider: Sade Wan PROCEDURE: CT ANGIO CHEST PE PROTOCOL INDICATIONS: chest pain, r/o PE TECHNIQUE: After the administration of intravenous contrast, 2 mm thick sections acquired from the pulmonary apices to the posterior costophrenic angles. 3-dimensional maximum intensity projection (MIP) coronal and sagittal reformats were then acquired through the thorax. For radiation dose reduction, the following was used: automated exposure control, adjustment of mA and/or kV according to patient size. COMPARISON: None. FINDINGS: Image quality: Excellent. Pulmonary arteries: Pulmonary arteries are normal in size, and demonstrate no intraluminal filling defects to suggest central pulmonary embolism. Lungs and pleura: Market asymmetric elevation of the left hemidiaphragm with ov erlying atelectasis. There are few small airways in the basilar left lower lobe which appear occluded with adjacent consolidation, likely a function of the chronic passive atelectasis. Mediastinum: Heart size is normal, without pericardial effusion. No mediastinal or hilar adenopathy. Thoracic aorta is normal in caliber and enhancement. Esophagus is normal in caliber, without hiatal hernia. Bones and chest wall: No suspicious bony lesions. Ribs and thoracic spine appear intact throughout. Thyroid gland unremarkable. No axillary or supraclavicular adenopathy. Abdomen: Visualized upper abdominal solid organs appear normal in the early arterial phase of enhancement. IMPRESSION: No evidence of pulmonary embolism. There is markedly asymmetric elevation of the left hemidiaphragm with associated atelectasis and consolidation, consistent with history of chronic left phrenic nerve/diaphragm palsy. Dictated by: Anthony Fu M.D. on 07/12/2020 at 19:16 Approved by: Anthony Fu M.D. on 07/12/2020 at 19:18 ECG Data Interpretation: 1714: Sinus rhythm, rate 74, MI interval 113, QTC 421. No ST elevation or ST depression. T-wave inversion noted in V1. No ectopy. EKG also viewed by Dr. Robbins. 1916: Sinus rhythm, rate 73, MI interval 122, QTC 430. No ST elevation or ST depression. T-wave inversion noted in V1. Appears the same as previous EKG. No ectopy. EKG also viewed Dr. Jarquin per protocol. MDM Narrative Medical decision making narrative: 75-year-old male with extensive history, presents emergency department for squirts of chest pain. Patient has multiple negative troponins and unremarkable EKG a reassuring, chest CT reassuring and decreases suspicion for PE or infection. Additionally, patient is hemodynamically stable and clinically well-appearing. He does have significant risk factors, discussed this with the admitting provider, heart score 4. She recommended follow-up outpatient if repeat troponins were negative and chest CT was reassuring as description of pain sounds less likely cardiac and has been ongoing for 3 days. Less concerns for viral etiology given lack of other symptoms such as increasing shortness of breath, fevers, or tachycardia. He was encouraged to follow up with PCP in the next few days. Return precautions were given. Patient agreed to plan of care verbalized understanding. <Pete Jarquin, DO - Last Filed: 07/12/20 22:35> Lab Data Labs: Lab Results 07/12/20 07/12/20 07/12/20 Range/Units 17:16 17:16 17:16 WBC 7.6 (4.5-11.0) X10^3/uL RBC 4.34 L (4.5-5.9) X10^6/uL Hgb 11.8 L (13.5-17.5) g/dL Hct 35.8 L (41-53) % MCV 82.4 (80-100) fL MCH 27.2 (26-34) PG MCHC 33.0 (30-36) % RDW 15.5 H (11.6-14.8) % Plt Count 222 (150-400) X10^3/uL Neut % (Auto) 65.1 (50-75) % Lymph % (Auto) 19.9 L (25-40) % Douglas % (Auto) 9.8 (3-14) % Eos % (Auto) 4.6 H (2-4) % Baso % (Auto) 0.6 (0-2) % Neut # (Auto) 4900 (7486-5376) /uL Lymph # (Auto) 1500 (7706-5527) /uL Douglas # (Auto) 700 (0-900) /uL Eos # (Auto) 300 (0-450) /uL Baso # (Auto) 0 (0-100) /uL PT 16.8 H (10.1-12.7) SECONDS INR 1.5 H (0.9-1.3) APTT 35 D (26.4-36.2) SECONDS Sodium 139 (137-145) mmol/L Potassium 4.0 (3.4-5.1) mmol/L Chloride 101 (98-107) mmol/L Carbon Dioxide 32 (22-32) mmol/L BUN 15 (9-20) mg/dL Creatinine 0.89 (0.66-1.25) mg/dL Estimated GFR > 60.0 (>60) mL/min BUN/Creatinine Ratio 16.9 (6-22) Glucose 130 H (80-110) mg/dL Calcium 9.1 (8.4-10.2) mg/dL Total Bilirubin 0.6 (0.2-1.3) mg/dL AST 28 (17-59) IU/L ALT 20 (<50) IU/L Alkaline Phosphatase 50 (38-126) U/L Total Creatine Kinase 85 (55-170) U/L CK-MB (CK-2) TNP CK-MB (CK-2) Rel Index TNP Troponin I < 0.012 (0.01-0.034) ng/mL NT-Pro-B Natriuret Pep (<125) pg/mL Total Protein 7.5 (6.3-8.2) g/dL Albumin 4.2 (3.5-5.0) g/dL Globulin 3.3 (1.7-4.1) g/dL Albumin/Globulin Ratio 1.3 (1.0-2.8) Lipase 28 (23-300) U/L 07/12/20 07/12/20 Range/Units 17:16 19:15 WBC (4.5-11.0) X10^3/uL RBC (4.5-5.9) X10^6/uL Hgb (13.5-17.5) g/dL Hct (41-53) % MCV (80-100) fL MCH (26-34) PG MCHC (30-36) % RDW (11.6-14.8) % Plt Count (150-400) X10^3/uL Neut % (Auto) (50-75) % Lymph % (Auto) (25-40) % Douglas % (Auto) (3-14) % Eos % (Auto) (2-4) % Baso % (Auto) (0-2) % Neut # (Auto) (8571-4720) /uL Lymph # (Auto) (4916-8597) /uL Douglas # (Auto) (0-900) /uL Eos # (Auto) (0-450) /uL Baso # (Auto) (0-100) /uL PT (10.1-12.7) SECONDS INR (0.9-1.3) APTT (26.4-36.2) SECONDS Sodium (137-145) mmol/L Potassium (3.4-5.1) mmol/L Chloride (98-107) mmol/L Carbon Dioxide (22-32) mmol/L BUN (9-20) mg/dL Creatinine (0.66-1.25) mg/dL Estimated GFR (>60) mL/min BUN/Creatinine Ratio (6-22) Glucose (80-110) mg/dL Calcium (8.4-10.2) mg/dL Total Bilirubin (0.2-1.3) mg/dL AST (17-59) IU/L ALT (<50) IU/L Alkaline Phosphatase (38-126) U/L Total Creatine Kinase (55-170) U/L CK-MB (CK-2) CK-MB (CK-2) Rel Index Troponin I < 0.012 (0.01-0.034) ng/mL NT-Pro-B Natriuret Pep 150 H (<125) pg/mL Total Protein (6.3-8.2) g/dL Albumin (3.5-5.0) g/dL Globulin (1.7-4.1) g/dL Albumin/Globulin Ratio (1.0-2.8) Lipase (23-300) U/L Urine Dip Bedside Urine Glucose Negative Bedside Urine Bilirubin - Negative Bedside Urine Ketone - Negative Urine Specific [place] 1.010 Bedside Urine Occult Blood - Negative Bedside Urine pH 8.0 Bedside Urine Protein - Negative Bedside Urine Urobilinogen - Negative Bedside Urine Nitrite - Negative Bedside Urine Leukocytes - Negative Esterase Discharge Plan Departure Patient Disposition: Home Clinical Impression: Atypical chest pain Discharge Date/Time: 07/12/20 21:06 Instructions: DI for Atypical Chest Pain Activity Restrictions/Additional Instructions: Thank you for entrusting me with your care today. As discussed, your chest x- ray, CT, laboratory work, and EKGs are non-remarkable. I am unsure the exact ca use of your chest pain however, your tests are very reassuring. I do recommend you contact your primary care provider tomorrow morning to schedule an appointment, discussed that you have been in the emergency department and were evaluated for chest pain. Please return to the emergency department for any new or worsening symptoms immediately. Prescriptions: No Action mirtazapine 15 MG tablet 45 mg PO BEDTIME Qty: 0 RF: 0 morphine 15 MG tablet 15 mg PO TID Qty: 0 RF: 0 oxycodone 5 MG tablet 1 tab PO TID PRN (Reason: pain) Qty: 30 RF: 0 metformin [Glucophage] 1,000 MG tablet 1,000 mg PO BID Qty: 0 RF: 0 amlodipine [Norvasc] 5 MG tablet 5 mg PO BID Qty: 180 RF: 0 citalopram 40 MG tablet 40 mg PO DAILY Qty: 90 RF: 0 warfarin [Coumadin] 5 MG tablet 10 mg PO TUTHSA Qty: 180 RF: 0 carvedilol [Coreg] 25 MG tablet 25 mg PO BIDCC Qty: 0 RF: 0 fluticasone propion-salmeterol [Advair Diskus] 250-50 mcg/dose Blister With Device 1 inh INHALATION BID RF: 0 acetic acid 2 % Solution 5 drp otic (ear) TID PRN (Reason: ear care) RF: 0 warfarin 5 mg Tablet 7.5 mg PO SUMOWETH RF: 0 aspirin 81 mg Tablet,Chewable 81 mg PO DAILY RF: 0 celecoxib 200 mg Capsule 200 mg PO DAILY RF: 0 atorvastatin 40 mg Tablet 40 mg PO DAILY RF: 0 gabapentin 300 mg Capsule 600 mg PO BID RF: 0 gabapentin 300 mg Capsule 900 mg PO BEDTIME RF: 0 lorazepam 1 mg Tablet 1 mg PO BEDTIME RF: 0 albuterol sulfate [ProAir HFA] 90 mcg/actuation Hfa Aerosol Inhaler 1 puff INHALATION DIRECTED PRN (Reason: Shortness Of Breath) RF: 0 hydroxyzine HCl 10 mg Tablet 10 mg PO TID RF: 0 cholecalciferol (vitamin D3) [Vitamin D3] 1,000 unit Capsule 1,000 unit PO DAILY RF: 0 bupropion HCl 150 mg Tablet Extended Release 24 Hr 150 mg PO QAM RF: 0 omeprazole 20 mg Tablet,Delayed Release (Dr/Ec) 20 mg PO BID RF: 0 Combivent Respimat 20-100 mcg/actuation Mist 1 puff Inhalation QID RF: 0 lisinopril 20 MG tablet 20 mg PO BID RF: 0 isosorbide mononitrate 60 MG tablet extended release 24 hr 60 mg PO DAILY RF: 0 doxycycline hyclate 100 mg capsule 100 mg PO BID Qty: 14 RF: 0 (DME) Resmed Aircurve 10 BIPAP Qty: 1 RF: 0 Referrals: Michaela See PA-C [Primary Care Provider] - <Pete Jarquin, - Last Filed: 07/12/20 22:35> [facility] Dr Jarquin Co-Sign Statement: I was available for consultation during this patient's emergency department visit. This chart is signed by myself for administrative purposes only. I did not have direct contact with this patient during this visit. They were seen independently by the APC.
[2020-07-12 17:52] LABS: Add Manual Diff / Slide Review NO; Basophils Absolute Auto 0 /uL (0-100); Basophils Percent Auto 0.6 % (0-2); Eosinophils Absolute Auto 300 /uL (0-450); Eosinophils Percent Auto 4.6 % (2-4); Hematocrit 35.8 % (41-53); Hemoglobin 11.8 g/dL (13.5-17.5); Lymphocytes Absolute Auto 1500 /uL (1100-4500); Lymphocytes Percent Auto 19.9 % (25-40); Mean Corpuscular Hemoglobin 27.2 PG (26-34); Mean Corpuscular Volume 82.4 fL (80-100); Monocytes Absolute Auto 700 /uL (0-900); Monocytes Percent Auto 9.8 % (3-14); Neutrophils Absolute Auto 4900 /uL (1500-7000); Neutrophils Percent Auto 65.1 % (50-75); Platelet Count 222 X10^3/uL (150-400); Red Blood Cell Count 4.34 X10^6/uL (4.5-5.9); Red Cell Distribution Width 15.5 % (11.6-14.8); White Blood Cell Count 7.6 X10^3/uL (4.5-11.0)
[2020-07-12 18:02] LABS: INR 1.5 (0.9-1.3); Prothrombin Time 16.8 SECONDS (10.1-12.7)
[2020-07-12 18:05] LABS: Alanine Aminotransferase 20 IU/L (<50); Albumin 4.2 g/dL (3.5-5.0); Alkaline Phosphatase 50 U/L (38-126); Aspartate Aminotransferase 28 IU/L (17-59); BUN Creatinine Ratio 16.9 (6-22); Bilirubin Total 0.6 mg/dL (0.2-1.3); Blood Urea Nitrogen 15 mg/dL (9-20); Calcium 9.1 mg/dL (8.4-10.2); Carbon Dioxide 32 mmol/L (22-32); Chloride 101 mmol/L (98-107); Creatine Kinase 85 U/L (55-170); Estimated Glomerular Filt Rate > 60.0 mL/min (>60); Globulin 3.3 g/dL (1.7-4.1); Glucose 130 mg/dL (80-110); PTT Partial Thromboplastin Tim 35 SECONDS (26.4-36.2); Sodium 139 mmol/L (137-145); Total Protein 7.5 g/dL (6.3-8.2)
[2020-07-12 18:06] LABS: Albumin Globulin Ratio 1.3 (1.0-2.8); HEMOLYSIS < 15 (0-50); Lipase 28 U/L (23-300)
[2020-07-12 18:16] LABS: NT-proBNP (BNP-Adult 18+) 150 pg/mL (<125)
[2020-07-12 18:18] LABS: Troponin I < 0.012 ng/mL (0.01-0.034)
--- NOTE | 2020-07-12 18:49 | DI.CT.S_ITS ---
PROCEDURE: CT ANGIO CHEST PE PROTOCOL INDICATIONS: chest pain, r/o PE TECHNIQUE: After the administration of intravenous contrast, 2 mm thick sections acquired from the pulmonary apices to the posterior costophrenic angles. 3-dimensional maximum intensity projection (MIP) coronal and sagittal reformats were then acquired through the thorax. For radiation dose reduction, the following was used: automated exposure control, adjustment of mA and/or kV according to patient size. COMPARISON: None. FINDINGS: Image quality: Excellent. Pulmonary arteries: Pulmonary arteries are normal in size, and demonstrate no intraluminal filling defects to suggest central pulmonary embolism. Lungs and pleura: Market asymmetric elevation of the left hemidiaphragm with overlying atelectasis. There are few small airways in the basilar left lower lobe which appear occluded with adjacent consolidation, likely a function of the chronic passive atelectasis. Mediastinum: Heart size is normal, without pericardial effusion. No mediastinal or hilar adenopathy. Thoracic aorta is normal in caliber and enhancement. Esophagus is normal in caliber, without hiatal hernia. Bones and chest wall: No suspicious bony lesions. Ribs and thoracic spine appear intact throughout. Thyroid gland unremarkable. No axillary or supraclavicular adenopathy. Abdomen: Visualized upper abdominal solid organs appear normal in the early arterial phase of enhancement. IMPRESSION: No evidence of pulmonary embolism. There is markedly asymmetric elevation of the left hemidiaphragm with associated atelectasis and consolidation, consistent with history of chronic left phrenic nerve/diaphragm palsy. Dictated by: Anthony Fu M.D. on 07/12/2020 at 19:16 Approved by: Anthony Fu M.D. on 07/12/2020 at 19:18
[2020-07-12 20:38] LABS: Troponin I < 0.012 ng/mL (0.01-0.034)
== END 2020-07-12 21:06 | disposition home or self-care (01) ==
PROVIDERS: Emergency Provider Nurse Practitioner; PCP Physician Assistant
DX: R07.89 Other chest pain (principal); R19.7 Diarrhea, unspecified; I10 Essential (primary) hypertension; E66.9 Obesity, unspecified
CPT/HCPCS: 36415; 71045; 71275; 80053; 81003; 82550; 83690; 83880; 84484; 85025; 85610; 85730; 93005; 99285; Q9967

== ENCOUNTER → 2020-10-14 18:49 | Outpatient (ROUT) | payer OTHER, SELFPAY ==
[2020-10-14 18:59] LABS: Add Manual Diff / Slide Review NO; Basophils Absolute Auto 100 /uL (0-100); Basophils Percent Auto 1.1 % (0-2); Eosinophils Absolute Auto 400 /uL (0-450); Eosinophils Percent Auto 6.3 % (2-4); Hematocrit 34.9 % (41-53); Hemoglobin 11.5 g/dL (13.5-17.5); Lymphocytes Absolute Auto 1300 /uL (1100-4500); Lymphocytes Percent Auto 21.4 % (25-40); Mean Corpuscular HGB Conc 32.8 % (30-36); Mean Corpuscular Hemoglobin 27.1 PG (26-34); Mean Corpuscular Volume 82.6 fL (80-100); Monocytes Absolute Auto 600 /uL (0-900); Monocytes Percent Auto 9.3 % (3-14); Neutrophils Absolute Auto 3700 /uL (1500-7000); Neutrophils Percent Auto 61.9 % (50-75); Platelet Count 218 X10^3/uL (150-400); Red Blood Cell Count 4.22 X10^6/uL (4.5-5.9); Red Cell Distribution Width 16.5 % (11.6-14.8)
[2020-10-14 19:08] LABS: Alanine Aminotransferase 18 IU/L (<50); Albumin 3.8 g/dL (3.5-5.0); Albumin Globulin Ratio 1.5 (1.0-2.8); Alkaline Phosphatase 44 U/L (38-126); Aspartate Aminotransferase 27 IU/L (17-59); Bilirubin Total 0.6 mg/dL (0.2-1.3); Blood Urea Nitrogen 16 mg/dL (9-20); Calcium 9.2 mg/dL (8.4-10.2); Carbon Dioxide 31 mmol/L (22-32); Chloride 103 mmol/L (98-107); Cholesterol 110 mg/dL (140-199); Estimated Glomerular Filt Rate > 60.0 mL/min (>60); Globulin 2.6 g/dL (1.7-4.1); Glucose 189 mg/dL (80-110); HDL Cholesterol 34 mg/dL (40-60); HEMOLYSIS < 15 (0-50); LDL Cholesterol Calculated 25 mg/dL (<100); Sodium 137 mmol/L (137-145); Total Protein 6.4 g/dL (6.3-8.2); Triglycerides 254 mg/dL (35-150)
[2020-10-14 19:12] LABS: Hemoglobin A1C% w Est Avg Glu 6.5 % (4.0-6.0)
[2020-10-20 17:10] LABS: HEMOLYSIS < 15 (0-50); Iron 62 ug/dL (49-181)
[2020-10-20 17:21] LABS: Percent Iron Saturation 15 % (20-50); Total Iron Binding Capacity 420 ug/dL (261-462); Transferrin 303 mg/dL (206-381)
[2020-10-20 17:47] LABS: Ferritin 7 ng/mL (18-464)
[2020-10-20 18:18] LABS: Folate > 20.0 ng/mL (2.76-20.0); Vitamin B12 > 1000 pg/mL (239-931)
== END ==
PROVIDERS: PCP Physician Assistant; Visit Provider Physician Assistant
DX: E11.9 Type 2 diabetes mellitus without complications (principal); J44.9 Chronic obstructive pulmonary disease, unspecified; I10 Essential (primary) hypertension; E78.5 Hyperlipidemia, unspecified
CPT/HCPCS: 80053; 80061; 82607; 82728; 82746; 83036; 83540; 83550; 85025

== ENCOUNTER → 2021-02-03 14:20 | Outpatient (CLI) | payer OTHER, SELFPAY ==
[2021-02-03 16:13] LABS: Folate > 20.0 ng/mL (2.76-20.0)
== END ==
PROVIDERS: PCP Physician Assistant; Referring Provider Physician Assistant; Visit Provider Physician Assistant
DX: D64.9 Anemia, unspecified (principal)
CPT/HCPCS: 36415; 82746

== ENCOUNTER 2021-03-27 20:38 | Emergency (ER) | payer OTHER, SELFPAY ==
[2021-03-27 20:45] VITALS: BP 110/55; PULSE 74; RESP 22; TEMP 36.4; O2SAT 93
--- NOTE | 2021-03-27 20:50 | DI.RAD.S_ITS ---
PROCEDURE: XR HIP W PEL IF DONE RT 2V INDICATIONS: fall TECHNIQUE: AP pelvis with lateral view(s) of the right hip(s). COMPARISON: [facility], , [id number] W PEL IF PERFORMED, 10/05/2017, 16:08. FINDINGS: Bones: No fractures or dislocations. Pelvic ring appears intact. No suspicious bony lesions. Lumbar spondylosis and facet arthropathy. Expected alignment of bilateral hip arthroplasties. Soft tissues: The visualized bowel gas pattern is normal. No suspicious soft tissue calcifications. IMPRESSION: Expected alignment. No acute fracture identified Dictated by: Adalberto Hemphill M.D. on 03/27/2021 at 21:59 Approved by: Adalberto Hemphill M.D. on 03/27/2021 at 22:00
--- NOTE | 2021-03-27 20:50 | DI.RAD.S_ITS ---
PROCEDURE: XR FEMUR RT MIN 2V INDICATIONS: fall TECHNIQUE: 4 views of the femur were acquired. COMPARISON: None. FINDINGS: Bones: No fractures or dislocations. No suspicious bony lesions. Right hip arthroplasty in expected alignment. Soft tissues: No suspicious soft tissue calcifications or masses. IMPRESSION: Expected alignment of right hip arthroplasty. Dictated by: Adalberto Hemphill M.D. on 03/27/2021 at 21:57 Approved by: Adalberto Hemphill M.D. on 03/27/2021 at 21:59
== END 2021-03-27 22:35 | disposition left against medical advice (07) ==
PROVIDERS: Emergency Provider Emergency Medicine; PCP Physician Assistant
DX: S89.91XA Unspecified injury of right lower leg, initial encounter (principal); W19.XXXA Unspecified fall, initial encounter
CPT/HCPCS: 73502; 73552; 99281

== ENCOUNTER 2022-05-18 14:59 | Emergency (ER) | payer OTHER, SELFPAY ==
[2022-05-18 15:08] VITALS: BP 139/61; PULSE 76; RESP 17; TEMP 36.2; O2SAT 93; BMI 37.0
--- NOTE | 2022-05-18 15:13 | DI.RAD.S_ITS ---
PROCEDURE: XR CHEST 2V INDICATIONS: sent by [facility] for chest xray TECHNIQUE: 2 views of the chest were acquired. COMPARISON: [facility], CT, CT ANGIO CHEST PE PROTOCOL, 07/12/2020, 18:57. [facility], CR, XR CHEST 1V, 07/12/2020, 17:45. [facility], CR, XR CHEST 2V, 12/20/2018, 15:13. FINDINGS: Surgical changes and devices: None. Lungs and pleura: Lungs appear clear. No pleural effusions or pneumothorax. Mediastinum: Mediastinal contours are unchanged. Stable asymmetric elevation of the left hemidiaphragm. Heart size appears to be within normal limits. Bones and chest wall: No suspicious bony abnormalities. Soft tissues appear unremarkable. IMPRESSION: No acute cardiopulmonary abnormality identified. Dictated by: Delbert Snow M.D. on 05/18/2022 at 15:56 Approved by: Delbert Snow M.D. on 05/18/2022 at 15:58
== END 2022-05-18 15:59 | disposition left against medical advice (07) ==
PROVIDERS: Emergency Provider Emergency Medicine; PCP Physician Assistant
DX: R05.9 Cough, unspecified (principal)
CPT/HCPCS: 71046; 99281